=== PATIENT | male | born 1955 | race Caucasian/White ===

== ENCOUNTER → 2016-08-31 | Outpatient (CLI) | payer OTHER ==
--- NOTE | 2016-08-31 10:32 | NM ---
EXAMINATION: Nuclear medicine myocardial perfusion study with exercise stress test. HISTORY: Chest pain. PROCEDURE: Patient exercised according to Jono protocol for 10 minutes and 15 seconds and achieved maximal hea rt rate of 143 beats per minute. Adequate exercise. Following intravenous administration of 8.4 and 30 mCi of technetium 99m sestamibi, stress and res t SPECT images including gating imaging was performed. FINDINGS: Stress and rest myocardial SPECT images demonstrates heterogeneous uptake within the left ventricula r myocardium. There is decreased perfusion along the inferior wall, slightly more notable on the str ess images. There is also a small area of mildly to moderately decreased perfusion at the apex on th e stress imaging. There is also a small area of mildly to moderately decreased perfusion involving t he septal wall towards the base. Review of gated images demonstrates normal wall motion, contractility and wall thickening. The left ventricular ejection fraction is 73 %. The left ventricular chamber size is normal. IMPRESSION: 1. Heterogeneous perfusion within the left ventricular myocardium with several small areas of reduce d perfusion. Small areas of ischemia are not excluded. 2. Normal ventricular chamber size and function with ejection fraction of 73 %.
--- NOTE | 2016-09-01 18:21 | PCM.PRNOTE ---
- Free Text/Narrative Note: Cardiolite exercise stress test Resting blood pressure: Pulse 71 Patient exercised per Jono protocol 10 minutes and 15 seconds and achieved a maximum heart rate of 143 beats per minute which was 91% of age-predicted maximum heart rate. Mets: 12.8 double product 25652 Resting EKG revealed normal sinus rhythm. With exertion, borderline positive ST depressions were noted anteriorly at peak exercise with resolution during recovery phase Test stopped at target heart rate No complaints of chest pain during exercise or recovery Impression : #1. Borderline positive stress test for ischemic ST depression anterior precordial leads #2. Good exercise tolerance exercise tolerance #3. Cardiolite portion of test pending
== END ==
LOC: MW.NM 06:25
PROVIDERS: ATTEND Family Medicine
DX: R07.9 Chest pain, unspecified (principal)
CPT/HCPCS: 78452; 93017; A9500

== ENCOUNTER 2017-05-25 09:54 | Day surgery (SDC) | payer OTHER ==
[~2017-05-25 09:54] MED LIST: Bupivacaine 0.25%/EPINEPHrine 1:200,000 10 ML SDV INJECT ONE; Bupivacaine 25%/EPINEPHrine/PF 30 ML ONE; Lactated Ringers 1,000 ML IV SCH; ceFAZolin 2 GM in Premix Bag 1 BAG IV ONE; traMADol 50 MG Tab PO PRN
[2017-05-25] MEDS ORDERED: Midazolam 1 MG/ML 2 ML SDV ONE (10:28)
[2017-05-25] MEDS ORDERED: fentaNYL 100 MCG/2 ML SDV ONE (10:28)
[2017-05-25] MEDS ORDERED: Lidocaine 2% 5 ML SDV ONE (10:28)
--- NOTE | 2017-05-25 10:59 | PCM.PREANE ---
Preanesthetic Assessment - Anesthesia/Transfusion/Family Hx Anesthesia History: Prior Anesthesia Without Reaction Family History of Anesthesia Reaction: No Transfusion History: No Prior Transfusion(s) Intubation History: Unknown - Review of Systems General: No Symptoms Pulmonary: No Symptoms Cardiovascular: No Symptoms Gastrointestinal: No Symptoms Neurological: No Symptoms Other: Reports: None - Physical Assessment Height: 6.99 m Weight: 2.722 kg ASA Class: 2 Mental Status: Alert & Oriented x3 Airway Class: Mallampati = 2 Dentition: Reports: Partial (lower), Bridge (fixed bridge upper ) Thyro-Mental Finger Breadths: 3 Mouth Opening Finger Breadths: 2 ROM/Head Extension: Full Lungs: Clear to Auscultation, Normal Respiratory Effort Cardiovascular: Regular Rate, Regular Rhythm - Allergies Allergies/Adverse Reactions: Allergies Allergy/AdvReac Type Severity Reaction Status Date / Time No Known Allergies Allergy Verified 05/22/14 09:58 - Blood Blood Available: No - Anesthesia Plan Pre-Op Medication Ordered: None - Acknowledgements Anesthesia Type Planned: MAC Pt an Appropriate Candidate for the Planned Anesthesia: Yes Alternatives and Risks of Anesthesia Discussed w Pt/Guardian: Yes Pt/Guardian Understands and Agrees with Anesthesia Plan: Yes PreAnesthesia Questionnaire HEENT History: Reports: Glaucoma, Impaired Vision, Macular Degeneration, Other ( See Below) Other HEENT History: wears glasses, has bottom partial, top permanent bridge, levon hearing aids Cardiovascular History: Reports: Hypertension Respiratory History: Reports: Sleep Apnea Other Respiratory History: uses CPAP Gastrointestinal History: Reports: None Psychiatric History: Reports: Anxiety, Depression Endocrine/Metabolic History: Reports: Obesity/BMI 30+ - Past Surgical History Head Surgeries/Procedures: Reports: None HEENT Surgical History: Reports: Cataract Surgery, Oral Surgery GI Surgical History: Reports: Hernia, Inguinal (left inguinal) - SUBSTANCE USE Smoking Status *Q: Never Smoker Second Hand Smoke Exposure: No Recreational Drug Use History: No - HOME MEDS Home Medications: Home Meds Sertraline [Zoloft] 150 mg PO DAILY 05/22/14 [History] Aspirin [[place] Aspirin] 81 mg PO DAILY 05/20/17 [History] Bimatoprost [LUMIGAN 0.01% Ophth Soln] 1 drop EYEBOTH ASDIRECTED 05/20/17 [ History] Dorzolamide HCl/Timolol Maleat [Dorzolamide-Timolol Eye Drops] 1 drop EYEBOTH ASDIRECTED 05/20/17 [History] Hydrochlorothiazide 25 mg PO DAILY 05/20/17 [History] Moexipril HCl [Moexipril] 15 mg PO DAILY 05/20/17 [History] - CURRENT (IN HOUSE) MEDS Current Meds: Current Medications Lactated Ringer's (Ringers, Lactated) 1,000 mls @ 125 mls/hr IV ASDIRECTED TERRY Tramadol HCl (Ultram) 50 mg PO Q4H PRN PRN Reason: Pain Discontinued Medications Bupivacaine HCl/Epinephrine Bitart (Marcaine 0.25%/Epinephrine 1:200,000) 10 ml INJECT ONETIME ONE Stop: 05/25/17 08:01 Fentanyl (Sublimaze) Confirm Administered Dose 100 mcg .ROUTE .STK-MED ONE Stop: 05/25/17 10:29 Cefazolin Sodium/Dextrose 2 gm (/ Premix) 50 mls @ 100 mls/hr IV ONETIME ONE Stop: 05/25/17 08:29 Bupivacaine HCl/Epinephrine Bitart (Sensorc Mpf 0.25%-Epi 1:[id number]) Confirm Administered Dose 30 mls @ as directed .ROUTE .STK-MED ONE Stop: 05/25/17 07:25 Lidocaine (Xylocaine-Mpf 2%) Confirm Administered Dose 5 ml .ROUTE .STK-MED ONE Stop: 05/25/17 10:29 Midazolam HCl (Versed 1 Mg/Ml) Confirm Administered Dose 2 mg .ROUTE .STK-MED ONE Stop: 05/25/17 10:29
[2017-05-25] MEDS ORDERED: Propofol 200 MG/20 ML SDV ONE ×2 (12:08)
--- NOTE | 2017-05-25 13:28 | PCM48HPAN ---
Post Anesthesia Note - EVALUATION WITHIN 48HRS OF ANESTHETIC Vital Signs in Normal Range: Yes Patient Participated in Evaluation: Yes Respiratory Function Stable: Yes Airway Patent: Yes Cardiovascular Function Stable: Yes Hydration Status Stable: Yes Pain Control Satisfactory: Yes Nausea and Vomiting Control Satisfactory: Yes Mental Status Recovered: Yes - COMMENTS/OBSERVATIONS Free Text/Narrative:: no anesthesia problems, patient skipped recovery room phase of postoperative care
--- NOTE | 2017-05-25 20:10 | PCM.OPNOTE ---
- General Post-Op/Procedure Note Date of Surgery/Procedure: 05/25/17 Operative Procedure(s): bilateral upper lid blepharoplasties for excess skin Pre Op Diagnosis: bilateral upper eyelid skin excess causing visual obstruction Post-Op Diagnosis: Same Anesthesia Technique: Local, MAC Primary Surgeon: Amanda Baptiste Gold Layer: Ashwini Kim Complications: None Condition: Good
--- NOTE | 2017-06-02 21:06 | OR ---
SURGEON: AMANDA BAPTISTE MD DATE OF PROCEDURE: 05/25/2017 PREOPERATIVE DIAGNOSIS: Bilateral upper eyelid skin excess causing visual obstruction. POSTOPERATIVE DIAGNOSIS: Bilateral upper eyelid skin excess causing visual obstruction. PROCEDURE PERFORMED: Bilateral upper lid blepharoplasties for excess skin weighing down lids. PRIMARY SURGEON: Amanda Baptiste MD. GEOGRAPHICAL HISTORIAN: JANI Abarca. ANESTHESIA: Local MAC. REASON GEOGRAPHICAL HISTORIAN WAS NECESSARY: For retraction, prepping, draping, and closure. INDICATIONS: Mr. Bass is a 61-year-old gentleman with significant visual obstruction from his excess upper eyelid skin. Risks and benefits of removal of this were discussed with him, and he was in agreement to proceed. Risks were including, but not limited to bleeding, infection, damage to underlying or overlying structures, possible need for future intervention, and possible scarring. He was in agreement to proceed. PROCEDURE IN DETAIL: After informed consent was obtained and placed on the chart, the patient was brought to the operating theater and laid in supine position. After adequate local MAC anesthesia was obtained, the area was prepped and draped and a time- out was completed to confirm side and site. Attention was then paid to preoperative markings without infiltration of local anesthesia. Using a pinch test, appropriate elliptical excisions were made and planned over the upper eyelids. Once adequately marked, the attention was then paid to infiltration of 0.25% Marcaine with epinephrine. Once actually infiltrated, attention was then paid to dissection using a 15 blade through the skin. Bovie electrocautery was used to obtain hemostasis, and the orbicularis muscle was left in place. Once adequately removed, attention was paid to meticulous hemostasis and contraction of the muscle and then closure of the skin using single deep 5-0 Monocryl stitch and a running 6-0 Prolene for the skin. These were steri-stripped in place at the medial and lateral edges. The upper eyelids were dressed with TobraDex solution. Once this was completed, the patient was transferred to the PACU in stable condition. FOLLOWUP INSTRUCTIONS: The patient tolerated this well. All counts and needles were correct at the end of the case. The patient will follow up in 1 week or sooner if any problems, questions, or concerns. He was given a prescription for pain control. HEGGTMORGAN / MODL /[id number]
== END 2017-05-25 13:10 | disposition home or self-care (01) ==
LOC: MW.SDS 09:54
PROVIDERS: ATTEND Plastic Surgery
DX: H02.834 Dermatochalasis of left upper eyelid (principal); H02.831 Dermatochalasis of right upper eyelid; F41.9 Anxiety disorder, unspecified; F32.9 Major depressive disorder, single episode, unspecified; M65.30 Trigger finger, unspecified finger; H40.9 Unspecified glaucoma; H35.30 Unspecified macular degeneration; I10 Essential (primary) hypertension; G47.30 Sleep apnea, unspecified; E66.9 Obesity, unspecified; Z79.899 Other long term (current) drug therapy; Z68.37 Body mass index [BMI] 37.0-37.9, adult; Z79.82 Long term (current) use of aspirin
CPT/HCPCS: 15823; J0690; J2250; J3010; J7120; 00103; J2704

== ENCOUNTER 2017-09-07 07:06 | Day surgery (SDC) | payer OTHER ==
[~2017-09-07 07:06] MED LIST changes: -Bupivacaine 0.25%/EPINEPHrine 1:200,000 10 ML SDV INJECT ONE; -Bupivacaine 25%/EPINEPHrine/PF 30 ML ONE; -ceFAZolin 2 GM in Premix Bag 1 BAG IV ONE; -traMADol 50 MG Tab PO PRN
[2017-09-07] MEDS ORDERED: Lidocaine 1% 20 ML MDV ONE (07:42)
--- NOTE | 2017-09-07 07:44 | PCM.PREANE ---
Preanesthetic Assessment - Anesthesia/Transfusion/Family Hx Anesthesia History: Prior Anesthesia Without Reaction Family History of Anesthesia Reaction: No Transfusion History: No Prior Transfusion(s) Intubation History: Unknown - Review of Systems General: No Symptoms Pulmonary: No Symptoms Cardiovascular: No Symptoms Gastrointestinal: No Symptoms Neurological: No Symptoms Other: Reports: None - Physical Assessment Height: 1.83 m Weight: 127.006 kg ASA Class: 3 Mental Status: Alert & Oriented x3 Airway Class: Mallampati = 2 Dentition: Reports: Partial (lower), [place](s) (multiple upper front) Thyro-Mental Finger Breadths: 3 Mouth Opening Finger Breadths: 3 ROM/Head Extension: Full Lungs: Clear to Auscultation, Normal Respiratory Effort Cardiovascular: Regular Rate, Regular Rhythm - Allergies Allergies/Adverse Reactions: Allergies Allergy/AdvReac Type Severity Reaction Status Date / Time No Known Allergies Allergy Verified 09/02/17 11:03 - Blood Blood Available: No - Anesthesia Plan Pre-Op Medication Ordered: None - Acknowledgements Anesthesia Type Planned: General Anesthesia Pt an Appropriate Candidate for the Planned Anesthesia: Yes Alternatives and Risks of Anesthesia Discussed w Pt/Guardian: Yes Pt/Guardian Understands and Agrees with Anesthesia Plan: Yes PreAnesthesia Questionnaire HEENT History: Reports: Glaucoma, Hard of Hearing, Other (See Below) Other HEENT History: wears glasses, has partial removable lower partial denture , has bilateral hearing aides Cardiovascular History: Reports: Hypertension Respiratory History: Reports: Sleep Apnea Other Respiratory History: uses CPAP Gastrointestinal History: Reports: None Psychiatric History: Reports: Depression Endocrine/Metabolic History: Reports: Obesity/BMI 30+ - Past Surgical History HEENT Surgical History: Reports: Cataract Surgery, Other (See Below) Other HEENT Surgeries/Procedures: recent lens exchange in eyes, hx of bone removed from lower jaw GI Surgical History: Reports: Hernia, Inguinal Male Surgical History: Reports: Vasectomy Dermatological Surgical History: Reports: Other (See Below) (bilateral upper blepharoplasty) - SUBSTANCE USE Smoking Status *Q: Never Smoker Second Hand Smoke Exposure: No Recreational Drug Use History: No - HOME MEDS Home Medications: Home Meds Sertraline [Zoloft] 150 mg PO DAILY 05/22/14 [History] Bimatoprost [LUMIGAN 0.01% Ophth Soln] 1 drop EYEBOTH BEDTIME 05/20/17 [History] Dorzolamide HCl/Timolol Maleat [Dorzolamide-Timolol Eye Drops] 1 drop EYEBOTH ASDIRECTED 05/20/17 [History] Hydrochlorothiazide 25 mg PO DAILY 05/20/17 [History] Moexipril HCl [Moexipril] 15 mg PO DAILY 05/20/17 [History] - CURRENT (IN HOUSE) MEDS Current Meds: Current Medications Hydrocodone Bitart/Acetaminophen ([place] 325-5 Mg) 1 - 2 tab PO Q4H PRN PRN Reason: Pain Cefazolin Sodium/Dextrose 2 gm (/ Premix) 50 mls @ 100 mls/hr IV ONCALL TERRY Lactated Ringer's (Ringers, Lactated) 1,000 mls @ 100 mls/hr IV ASDIRECTED [facility] Last Admin: 09/07/17 07:31 Dose: 100 mls/hr
[2017-09-07] MEDS ORDERED: Acetaminophen/HYDROcodone 325-5 MG Tab PO PRN (08:00)
[2017-09-07] MEDS ORDERED: ceFAZolin 2 GM in Premix Bag 1 BAG IV SCH (08:00)
[2017-09-07] MEDS ORDERED: Propofol 200 MG/20 ML SDV ONE (08:54)
[2017-09-07] MEDS ORDERED: ceFAZolin/Dextrose,Iso-Osmotic 2 GM/50 ML Duplex Bag IV ONE (08:55)
[2017-09-07] MEDS ORDERED: fentaNYL 250 MCG/5 ML SDV ONE (08:55)
[2017-09-07] MEDS ORDERED: Midazolam 1 MG/ML 2 ML SDV ONE (08:55)
--- NOTE | 2017-09-07 09:02 | PCM.OPNOTE ---
- General Post-Op/Procedure Note Date of Surgery/Procedure: 09/07/17 Operative Procedure(s): R knee scope with PMM Post-Op Diagnosis: R knee medial meniscus tear Anesthesia Technique: General LMA Primary Surgeon: Katerina Bentley Defect Repairer Glassware: Britany Oliver in mLs: 5 Condition: Good Free Text/Narrative:: tt=15 min #[id number]
--- NOTE | 2017-09-07 10:36 | PCM.POSTAN ---
POST ANESTHESIA ASSESSMENT - MENTAL STATUS Mental Status: Alert, Oriented - VITAL SIGNS Pulse Rate: 69 SaO2: 98 Resp Rate: 20 Blood Pressure: 137/82 - RESPIRATORY Respiratory Status: Respiratory Rate WNL, Airway Patent, O2 Saturation Stable - CARDIOVASCULAR CV Status: Pulse Rate WNL, Blood Pressure Stable - GASTROINTESTINAL GI Status: No Symptoms - PAIN Pain Score: 0 - POST OP HYDRATION Hydration Status: Adequate & Stable
--- NOTE | 2017-09-07 11:21 | OR ---
SURGEON: Katerina Bentley MD DATE OF PROCEDURE: 09/07/2017 PREOPERATIVE DIAGNOSES: 1. Right knee medial meniscus tear. 2. Right knee degenerative joint disease. POSTOPERATIVE DIAGNOSES: 1. Right knee medial meniscus tear. 2. Right knee degenerative joint disease. PROCEDURE: Right knee arthroscopy with partial medial meniscectomy. CHASER APPRENTICE: Britany Oliver PA-C ANESTHESIA: General. ESTIMATED BLOOD LOSS: 5 mL. TOURNIQUET TIME: See nursing record. COMPLICATIONS: None. DEEP VENOUS THROMBOSIS PROPHYLAXIS: Not indicated. IMPLANTS USED: None. BRIEF HISTORY: Mason is a 62-year-old male who injured his right knee while at work. An MRI did show a tear of the medial meniscus along with minor degenerative changes. Due to his lack of response to conservative treatment, I did recommend surgical intervention. The risks and goals of procedure were discussed with the patient and were documented preoperatively. He agreed to proceed. DESCRIPTION OF PROCEDURE: The patient was properly identified and brought to the operating room. He was transferred from the OR cart and placed on the operating table in supine position. General anesthesia was administered. After adequate anesthesia was obtained, a well-padded tourniquet was applied to the right lower extremity. The right lower extremity was then prepped in standard fashion using ChloraPrep solution. It was then sterilely draped. A time-out was performed to ensure correct site and procedure. Preoperative antibiotics were given. The surgical site had been marked preoperatively. An Esmarch was used to exsanguinate the right lower extremity and the tourniquet was inflated to 250 mmHg. A lateral portal arthrotomy was established. Blunt trocar and cannula were introduced into the suprapatellar pouch. Camera, inflow, and outflow were assembled. No significant synovitis was noted. The patellofemoral joint was visualized. 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 Grade 2 chondromalacia was noted along the undersurface of the patella. The patella appeared to track centrally. I then extended down the lateral and medial gutter. No loose bodies were identified. I then entered the medial compartment. A medial portal arthrotomy was established. A blunt probe was inserted. Degenerative radial tear along the posterior horn of the medial meniscus was noted. Using a combination of biters and shaver, this was resected back to a stable remnant. The meniscus was again probed and the remainder was found to be stable. The joint surfaces did show grade 3 chondromalacia along the weightbearing portion of the medial femoral condyle. Grade 2 chondromalacia was noted along the medial femoral condyle. I then entered the notch. Both the ACL and PCL were visualized and probed and found to be intact. Finally I entered the lateral compartment. Diffuse grade 2 chondromalacia was noted throughout the lateral compartment. The meniscus was probed. Minor degenerative fraying was noted centrally. The meniscus was probed and found to be stable. The instruments were then removed from the knee. The portal sites were closed with 3-0 nylon. Lidocaine 1% was injected along the portal tracts. Xeroform gauze was placed over the wound and a bulky dressing was applied. The tourniquet was then deflated. He was awakened from his anesthetic and transferred back to the operating room cart. He was brought to recovery room in stable condition. All needle and sponge counts were correct. JARRETT / PADMINI /[id number]
--- NOTE | 2017-09-07 11:51 | PCM48HPAN ---
Post Anesthesia Note - EVALUATION WITHIN 48HRS OF ANESTHETIC Vital Signs in Normal Range: Yes Patient Participated in Evaluation: Yes Respiratory Function Stable: Yes Airway Patent: Yes Cardiovascular Function Stable: Yes Hydration Status Stable: Yes Pain Control Satisfactory: Yes Nausea and Vomiting Control Satisfactory: Yes Mental Status Recovered: Yes Pulse Rate: 69 Resp Rate: 16 Blood Pressure: 137/82 - COMMENTS/OBSERVATIONS Free Text/Narrative:: no anesthesia problems
== END 2017-09-07 11:15 | disposition home or self-care (01) ==
LOC: MW.SDS 07:06
PROVIDERS: ATTEND Orthopaedic Surgery
DX: S83.241A Other tear of medial meniscus, current injury, right knee, initial encounter (principal); M17.11 Unilateral primary osteoarthritis, right knee; M22.41 Chondromalacia patellae, right knee; F41.9 Anxiety disorder, unspecified; F32.9 Major depressive disorder, single episode, unspecified; I10 Essential (primary) hypertension; G47.30 Sleep apnea, unspecified; M65.30 Trigger finger, unspecified finger; E66.9 Obesity, unspecified; Z68.30 Body mass index [BMI] 30.0-30.9, adult; X58.XXXA Exposure to other specified factors, initial encounter; Z79.899 Other long term (current) drug therapy; Z99.89 Dependence on other enabling machines and devices
CPT/HCPCS: 29881; 88304; J0690; J2250; J3010; J7120; 01400; J2704

== ENCOUNTER 2017-12-23 06:39 | Day surgery (SDC) | payer OTHER ==
[2017-12-23] MEDS ORDERED: Midazolam 1 MG/ML 2 ML SDV ONE (07:17)
[2017-12-23] MEDS ORDERED: fentaNYL 100 MCG/2 ML SDV ONE (07:17)
[2017-12-23] MEDS ORDERED: Propofol 200 MG/20 ML SDV ONE (07:17)
[2017-12-23] MEDS ORDERED: ceFAZolin/Dextrose,Iso-Osmotic 2 GM/50 ML Duplex Bag IV ONE (07:26)
[2017-12-23] MEDS ORDERED: Bupivacaine 25%/EPINEPHrine/PF 30 ML ONE (07:39)
--- NOTE | 2017-12-23 07:39 | PCM.PREANE ---
Preanesthetic Assessment - Procedure Proposed Procedure: Left ring finger trigger release - Anesthesia/Transfusion/Family Hx Anesthesia History: Prior Anesthesia Without Reaction Family History of Anesthesia Reaction: No Transfusion History: No Prior Transfusion(s) Intubation History: Unknown - Review of Systems Other: Reports: None - Physical Assessment NPO Status Date: 12/22/17 NPO Status Time: 20:00 O2 Sat by Pulse Oximetry: 94 Respiratory Rate: 16 Vital Signs: Last Vital Signs Temp 36.4 C 12/23/17 06:55 Pulse 68 12/23/17 06:55 Resp 16 12/23/17 06:55 BP 144/90 H 12/23/17 06:55 Pulse Ox 94 L 12/23/17 06:55 Height: 6 ft Weight: 127.006 kg ASA Class: 2 Airway Class: Mallampati = 1 Dentition: Reports: Normal Dentition Thyro-Mental Finger Breadths: 3 Mouth Opening Finger Breadths: 3 ROM/Head Extension: Full - Allergies Allergies/Adverse Reactions: Allergies Allergy/AdvReac Type Severity Reaction Status Date / Time No Known Allergies Allergy Verified 12/19/17 14:49 - Acknowledgements Anesthesia Type Planned: MAC Pt an Appropriate Candidate for the Planned Anesthesia: Yes Alternatives and Risks of Anesthesia Discussed w Pt/Guardian: Yes Pt/Guardian Understands and Agrees with Anesthesia Plan: Yes PreAnesthesia Questionnaire HEENT History: Reports: Glaucoma, Hard of Hearing, Other (See Below) Other HEENT History: wears glasses, has partial removable lower partial denture , has bilateral hearing aides Cardiovascular History: Reports: Hypertension Respiratory History: Reports: Sleep Apnea Other Respiratory History: uses CPAP Gastrointestinal History: Reports: None Psychiatric History: Reports: Anxiety, Depression Endocrine/Metabolic History: Reports: Obesity/BMI 30+ Dermatologic History: Reports: None - Past Surgical History Head Surgeries/Procedures: Reports: None HEENT Surgical History: Reports: Cataract Surgery, Other (See Below) Other HEENT Surgeries/Procedures: recent lens exchange in eyes, hx of bone removed from lower jaw GI Surgical History: Reports: Hernia, Inguinal Male Surgical History: Reports: Vasectomy Musculoskeletal Surgical History: Reports: Arthroscopic Knee - SUBSTANCE USE Smoking Status *Q: Never Smoker Recreational Drug Use History: No - HOME MEDS Home Medications: Home Meds Sertraline [Zoloft] 150 mg PO DAILY 05/22/14 [History] Bimatoprost [LUMIGAN 0.01% Ophth Soln] 1 drop EYEBOTH BEDTIME 05/20/17 [History] Dorzolamide HCl/Timolol Maleat [Dorzolamide-Timolol Eye Drops] 1 drop EYEBOTH ASDIRECTED 05/20/17 [History] Hydrochlorothiazide 25 mg PO DAILY 05/20/17 [History] Moexipril HCl [Moexipril] 15 mg PO DAILY 05/20/17 [History] - CURRENT (IN HOUSE) MEDS Current Meds: Current Medications Hydrocodone Bitart/Acetaminophen ([place] 325-5 Mg) 1 tab PO Q4H PRN PRN Reason: Pain Bupivacaine HCl/Epinephrine Bitart (Marcaine 0.25%/Epinephrine 1:200,000) 10 ml INJECT ONETIME ONE Stop: 12/23/17 08:01 Cefazolin Sodium/Dextrose 2 gm (/ Premix) 50 mls @ 100 mls/hr IV ONETIME ONE Stop: 12/23/17 08:29 Lactated Ringer's (Ringers, Lactated) 1,000 mls @ 125 mls/hr IV ASDIRECTED TERRY Last Admin: 12/23/17 07:03 Dose: 125 mls/hr Discontinued Medications Cefazolin Sodium/Dextrose (Ancef) Confirm Administered Dose 2 gm IV .STK-MED ONE Stop: 12/23/17 07:27 Fentanyl (Sublimaze) Confirm Administered Dose 100 mcg .ROUTE .STK-MED ONE Stop: 12/23/17 07:18 Midazolam HCl (Versed 1 Mg/Ml) Confirm Administered Dose 2 mg .ROUTE .STK-MED ONE Stop: 12/23/17 07:18 Propofol (Diprivan 20 Ml) Confirm Administered Dose 200 mg .ROUTE .STK-MED ONE Stop: 12/23/17 07:18
[2017-12-23] MEDS ORDERED: Acetaminophen/HYDROcodone 325-5 MG Tab PO PRN (08:00)
[2017-12-23] MEDS ORDERED: ceFAZolin 2 GM in Premix Bag 1 BAG IV ONE (08:00)
[2017-12-23] MEDS ORDERED: Lactated Ringers 1,000 ML IV SCH (08:00)
[2017-12-23] MEDS ORDERED: Bupivacaine 0.25%/EPINEPHrine 1:200,000 10 ML SDV INJECT ONE (08:00)
--- NOTE | 2017-12-23 08:59 | PCM.POSTAN ---
POST ANESTHESIA ASSESSMENT - MENTAL STATUS Mental Status: Alert, Oriented - RESPIRATORY Respiratory Status: Respiratory Rate WNL, Airway Patent, O2 Saturation Stable - CARDIOVASCULAR CV Status: Pulse Rate WNL, Blood Pressure Stable - GASTROINTESTINAL GI Status: No Symptoms - PAIN Pain Score: 0 - POST OP HYDRATION Hydration Status: Adequate & Stable
--- NOTE | 2017-12-23 09:12 | PCM48HPAN ---
Post Anesthesia Note - EVALUATION WITHIN 48HRS OF ANESTHETIC Vital Signs in Normal Range: Yes Patient Participated in Evaluation: Yes Respiratory Function Stable: Yes Airway Patent: Yes Cardiovascular Function Stable: Yes Hydration Status Stable: Yes Pain Control Satisfactory: Yes Nausea and Vomiting Control Satisfactory: Yes Mental Status Recovered: Yes Resp Rate: 16
--- NOTE | 2017-12-23 13:41 | PCM.OPNOTE ---
- General Post-Op/Procedure Note Date of Surgery/Procedure: 12/23/17 Operative Procedure(s): left ring finger trigger finger release Pre Op Diagnosis: left ring finger trigger finger Post-Op Diagnosis: Same Anesthesia Technique: Local, MAC Primary Surgeon: Amanda Baptiste Complications: None Condition: Good
--- NOTE | 2017-12-26 15:00 | OR ---
SURGEON: BRUNILDA GIRARD MD DATE OF PROCEDURE: 12/23/2017 PREOPERATIVE DIAGNOSIS: Left ring finger trigger finger. POSTOPERATIVE DIAGNOSIS: Left ring finger trigger finger. PROCEDURE: Left ring finger trigger finger release. BULK PLANT OPERATOR: None. ANESTHESIA: Local MAC. INDICATIONS: Mr. Bass is a 62-year-old gentleman with significant ring finger triggering on the left side. Risks and benefits of release were discussed with him and he would like to proceed. He has previously failed injections. Risks were including, but not limited to bleeding, infection, damage to underlying or overlying structures, possible need for future interventions, and possible scarring. PROCEDURE IN DETAIL: After informed consent was obtained and placed on the chart, the patient was brought to the operating theater and laid in supine position. After adequate anesthesia was obtained, the area was prepped and draped. The arm was exsanguinated and tourniquet was insufflated to 200 mmHg. Attention was then paid to the left ring finger trigger finger incision over the A1 yanelis and this was made through the skin. Dissection was carried through subcutaneous tissues using a Ray-Yanci for spreading. Retraction was taken to protect the digital neurovascular bundles and the A1 yanelis was easily located. A 15 blade was used to cut through the sheath until breach and then dissection was carried distally and proximally using a Littler scissor for complete release. Once adequately released, the wound was irrigated and closed in a horizontal mattress fashion and dressed with Xeroform, fluffs, Kerlix, gauze dressing, and a 2-inch Jn wrap. The patient tolerated the procedure well. All counts needles were correct at the end of the case. FOLLOWUP INSTRUCTIONS: The patient will see us in 2 weeks for suture removal, sooner with any problems, questions, or concerns. ABDOULAYE / PADMINI /[id number]
== END 2017-12-23 09:25 | disposition home or self-care (01) ==
LOC: MW.SDS 06:39
PROVIDERS: ATTEND Plastic Surgery
DX: M65.342 Trigger finger, left ring finger (principal); I10 Essential (primary) hypertension; E66.9 Obesity, unspecified; Z68.37 Body mass index [BMI] 37.0-37.9, adult; F41.9 Anxiety disorder, unspecified; F32.9 Major depressive disorder, single episode, unspecified; G47.30 Sleep apnea, unspecified; Z99.89 Dependence on other enabling machines and devices; Z79.899 Other long term (current) drug therapy
CPT/HCPCS: 26055; J0690; J2250; J3010; J7120; J2704

== ENCOUNTER 2018-06-26 17:55 | Emergency (ER) | payer OTHER ==
--- NOTE | 2018-06-26 18:25 | EDM.PDOC ---
ED HPI GENERAL MEDICAL PROBLEM - General Chief Complaint: Cardiovascular Problem Stated Complaint: HIGH BP Time Seen by Provider: 06/26/18 18:22 Source of Information: Reports: Patient History Limitations: Reports: No Limitations - History of Present Illness INITIAL COMMENTS - FREE TEXT/NARRATIVE: HISTORY AND PHYSICAL: History of present illness: Patient is a 62-year-old male here with complaint of high blood pressure. He states he took his BP medication this morning and when he took his BP this afternoon using a cuff at home and it was 187/110. He took 1/2 of his BP medication and came to the ED. He denies chest pain/pressure, SOB, headache, dizziness, lightheadedness, visual changes, abdominal pain. States he feels a little tired but is otherwise in his usual states of health and has no other complaints. Blood pressure is 149/93. Review of systems: As per history of present illness and below otherwise all systems reviewed and negative. Past medical history: As per history of present illness and as reviewed below otherwise noncontributory. Surgical history: As per history of present illness and as reviewed below otherwise noncontributory. Social history: No reported history of drug or alcohol abuse. Family history: As per history of present illness and as reviewed below otherwise noncontributory. Physical exam: General: Patient sitting comfortably in no acute distress and nontoxic appearing HEENT: Atraumatic, normocephalic, pupils reactive, negative for conjunctival pallor or scleral icterus, mucous membranes moist, throat clear, neck supple, nontender, trachea midline. No meningeal signs. Lungs: Clear to auscultation, breath sounds equal bilaterally, chest nontender. Heart: S1S2, regular, negative for clicks, rubs, or overt murmur. Abdomen: Soft, nondistended, nontender. Negative for masses or hepatosplenomegaly. Negative for costovertebral tenderness. Pelvis: Stable nontender. Genitourinary: Deferred. Rectal: Deferred. Extremities: Atraumatic, negative for cords or calf pain. Neurovascular unremarkable. Neuro: Awake, alert, oriented. Cranial nerves II through XII unremarkable. Cerebellum unremarkable. Motor and sensory unremarkable throughout. Exam nonfocal. Notes: Diagnostics: EKG Therapeutics: None Prescriptions: None Impression: Hypertension, asymptomatic Plan: 1. Follow up with primary care provider 2. Return to ED as needed as discussed Definitive disposition and diagnosis as appropriate pending reevaluation and review of above. - Related Data Allergies Allergy/AdvReac Type Severity Reaction Status Date / Time No Known Allergies Allergy Verified 06/26/18 18:01 Home Meds: Home Meds Bimatoprost [LUMIGAN 0.01% Ophth Soln] 1 drop EYEBOTH BEDTIME 05/20/17 [History] Dorzolamide HCl/Timolol Maleat [Dorzolamide-Timolol Eye Drops] 1 drop EYEBOTH ASDIRECTED 05/20/17 [History] Hydrochlorothiazide 25 mg PO DAILY 05/20/17 [History] Moexipril HCl [Moexipril] 15 mg PO DAILY 05/20/17 [History] Hydrocodone/Acetaminophen [Hydrocodon-Acetaminophen 5-325] 1 each PO Q4HR PRN # 20 tablet 12/23/17 [Rx] Triamterene/Hydrochlorothiazid [Triamterene-HCTZ 37.5-25 MG] 1 tab PO DAILY [History] Past Medical History HEENT History: Reports: Glaucoma, Hard of Hearing, Other (See Below) Other HEENT History: wears glasses, has partial removable lower partial denture , has bilateral hearing aides Cardiovascular History: Reports: Hypertension Respiratory History: Reports: Sleep Apnea Other Respiratory History: uses CPAP Gastrointestinal History: Reports: None Genitourinary History: Reports: None Musculoskeletal History: Reports: None Neurological History: Reports: None Psychiatric History: Reports: Anxiety, Depression Endocrine/Metabolic History: Reports: Obesity/BMI 30+ Hematologic History: Reports: None Immunologic History: Reports: None Oncologic (Cancer) History: Reports: None Dermatologic History: Reports: None - Infectious Disease History Infectious Disease History: Reports: Chicken Pox, Measles - Past Surgical History Head Surgeries/Procedures: Reports: None HEENT Surgical History: Reports: Cataract Surgery, Other (See Below) Other HEENT Surgeries/Procedures: recent lens exchange in eyes, hx of bone removed from lower jaw Cardiovascular Surgical History: Reports: None Respiratory Surgical History: Reports: None GI Surgical History: Reports: Hernia, Inguinal Male Surgical History: Reports: Vasectomy Endocrine Surgical History: Reports: None Neurological Surgical History: Reports: None Musculoskeletal Surgical History: Reports: Arthroscopic Knee Oncologic Surgical History: Reports: None Dermatological Surgical History: Reports: None Social & Family History - Family History Family Medical History: Noncontributory - Tobacco Use Smoking Status *Q: Never Smoker Second Hand Smoke Exposure: No - Caffeine Use Caffeine Use: Reports: Coffee, Soda - Recreational Drug Use Recreational Drug Use: No ED ROS GENERAL - Review of Systems Review Of Systems: ROS reveals no pertinent complaints other than HPI. ED EXAM, GENERAL - Physical Exam Exam: See Below (see dictation) Course - Vital Signs Last Recorded V/S: Last Vital Signs Temp 97.2 F 06/26/18 18:02 Pulse 88 06/26/18 18:02 Resp 18 06/26/18 18:02 BP 149/93 H 06/26/18 18:27 Pulse Ox 92 L 06/26/18 18:02 - Orders/Labs/Meds Orders: Active Orders 24 hr Category Date Time Status EKG Documentation Completion [RC] STAT Care 06/26/18 18:24 Active Departure - Departure Time of Disposition: 18:40 Disposition: Home, Self-Care 01 Condition: Good Clinical Impression: Hypertension Referrals: Shola Simon MD [Primary Care Provider] - Forms: ED Department Discharge Additional Instructions: The following information is given to patients seen in the emergency department who are being discharged to home. This information is to outline your options for follow-up care. We provide all patients seen in our emergency department with a follow-up referral. The need for follow-up, as well as the timing and circumstances, are variable depending upon the specifics of your emergency department visit. If you don't have a primary care physician on staff, we will provide you with a referral. We always advise you to contact your personal physician following an emergency department visit to inform them of the circumstance of the visit and for follow-up with them and/or the need for any referrals to a consulting specialist. The emergency department will also refer you to a specialist when appropriate. This referral assures that you have the opportunity for follow-up care with a specialist. All of these measure are taken in an effort to provide you with optimal care, which includes your follow-up. Under all circumstances we always encourage you to contact your private physician who remains a resource for coordinating your care. When calling for follow-up care, please make the office aware that this follow-up is from your recent emergency room visit. If for any reason you are refused follow-up, please contact the [facility] Emergency Department at and asked to speak to the emergency department charge nurse. [address] [address] 1. Follow up with primary care provider 2. Return to ED as needed as discussed - My Orders Last 24 Hours: My Active Orders 06/26/18 18:24 EKG Documentation Completion [RC] STAT - Assessment/Plan Last 24 Hours: My Active Orders 06/26/18 18:24 EKG Documentation Completion [RC] STAT
== END 2018-06-26 18:56 | disposition home or self-care (01) ==
LOC: MW.ED 17:55
DX: I10 Essential (primary) hypertension (principal); F41.9 Anxiety disorder, unspecified; F32.9 Major depressive disorder, single episode, unspecified; Z79.899 Other long term (current) drug therapy
CPT/HCPCS: 93005; 99283; 99283-25

== ENCOUNTER 2023-09-15 09:14 | Day surgery (SDC) | payer MEDICARE, BC ==
[~2023-09-15 09:14] MED LIST changes: -Lactated Ringers 1,000 ML IV SCH; +Sodium Chloride 0.9% 10 ML Syringe FLUSH PRN; +Sodium Chloride 0.9% 2.5 ML Syringe FLUSH PRN; +Sodium Chloride 0.9% 20 ML SDV IV PRN
[2023-09-15] MEDS: Lactated Ringers 1,000 ML IV SCH (09:38)
[2023-09-15] MEDS ORDERED: propofoL 50 ML ONE (11:17)
== END 2023-09-15 12:14 | disposition home or self-care (01) ==
LOC: MW.SDS 09:14
PROVIDERS: ATTEND Surgery
DX: Z12.11 Encounter for screening for malignant neoplasm of colon (principal); D12.4 Benign neoplasm of descending colon; K62.1 Rectal polyp; K64.3 Fourth degree hemorrhoids; I10 Essential (primary) hypertension; E11.9 Type 2 diabetes mellitus without complications; F32.A Depression, unspecified; G47.33 Obstructive sleep apnea (adult) (pediatric); Z98.890 Other specified postprocedural states; Z79.82 Long term (current) use of aspirin; Z79.84 Long term (current) use of oral hypoglycemic drugs; Z79.899 Other long term (current) drug therapy
CPT/HCPCS: 45380; 82947; J2704; J7120

== ENCOUNTER 2024-01-09 16:30 | Observation (INO) | payer MEDICARE, BC ==
[2024-01-09] MEDS: Sodium Chloride 0.9% 1,000 ML IV ONE (19:36)
[2024-01-09] MEDS: Ondansetron 4 MG/2 ML SDV IVPUSH ONE (19:37)
[2024-01-09] MEDS: Morphine 4 MG/ML Syringe IVPUSH ONE (21:13)
[2024-01-09] MEDS ORDERED: 50% Dextrose in Water 50 ML Syringe IVPUSH PRN (23:44)
[2024-01-09] MEDS ORDERED: Glucagon,Human Recombinant 1 MG Vial IM PRN (23:44)
[2024-01-10] MEDS: Insulin Aspart 100 Units/ML 3 ML Pen SUBCUT SCH (06:55)
[2024-01-10 08:55] LABS: BASOPHILS ABSOLUTE AUTO 0.02 K/uL (0.00-0.20); BASOPHILS PERCENT AUTO 0.3 % (0.0-1.0); EOSINOPHILS ABSOLUTE AUTO 0.09 K/uL (0.00-0.45); EOSINOPHILS PERCENT AUTO 1.2 % (0.0-6.0); HEMATOCRIT 45.2 % (42.0-52.0); HEMOGLOBIN 15.4 g/dL (14.0-18.0); IMMATURE GRAN ABSOLUTE AUTO 0.03 K/uL (0.00-0.05); IMMATURE GRAN PERCENT AUTO 0.4 % (0.0-0.4); LYMPHOCYTES ABSOLUTE AUTO 1.42 K/uL (1.00-4.80); LYMPHOCYTES PERCENT AUTO 19.6 % (24.0-44.0); MEAN CORPUSCULAR HGB CONC 34.1 g/dL (32.0-36.0); MEAN CORPUSCULAR VOLUME 85.1 fL (83.0-99.0); MEAN PLATELET VOLUME 9.5 fL (9.4-12.4); MONOCYTES ABSOLUTE AUTO 0.59 K/uL (0.00-0.80); MONOCYTES PERCENT AUTO 8.2 % (0.0-8.0); NEUTROPHILS ABSOLUTE AUTO 5.08 K/uL (1.80-7.70); NEUTROPHILS PERCENT AUTO 70.3 % (41.0-71.0); PLATELET COUNT,PLT 173 K/uL (150-400); RED BLOOD CELL COUNT 5.31 M/uL (4.52-5.90); WHITE BLOOD CELL COUNT,WBC 7.23 K/uL (3.9-11.3)
[2024-01-10 09:28] LABS: CREATININE 1.1 mg/dL (0.8-1.3); EST CRCL DRUG DOSING (CG) 69.57 mL/min; MAGNESIUM 2.2 mg/dL (1.8-2.4); TSH ULTRASENSITIVE 1.83 uIU/mL (0.36-3.74)
[2024-01-10] MEDS ORDERED: Beta-Carotene (Vitamin A) w/Vitamin C & E plus Minerals Tab PO SCH (10:15)
[2024-01-10] MEDS: ARIPiprazole 10 MG Tab PO SCH (11:14)
[2024-01-10] MEDS: Hydrochlorothiazide/Triamterene 25-37.5 Tab PO SCH (11:14)
[2024-01-10] MEDS: Losartan 50 MG Tab PO SCH (11:15)
[2024-01-10] MEDS: Aspirin 81 MG Tab.EC PO SCH (11:15)
[2024-01-10] MEDS: Empagliflozin 25 MG Tab PO SCH (11:16)
[2024-01-10] MEDS: Rosuvastatin 10 MG Tab PO SCH (11:20)
[2024-01-10] MEDS: Gadobenate Dimeglumine 529 MG/ML 20 ML SDV IVPUSH ONE (12:14)
[2024-01-10] MEDS ORDERED: metFORMIN 500 MG Tab.ER PO SCH (17:00)
[2024-01-10] MEDS ORDERED: DESVENLAFAXINE SUCCINATE PO SCH (21:00)
[2024-01-10] MEDS ORDERED: BIMATOPROST EYEBOTH SCH (21:00)
[2024-01-10] MEDS ORDERED: Latanoprost 0.005% Ophth Soln 2.5 ML Bottle EYEBOTH SCH (21:00)
[2024-01-10] MEDS ORDERED: Desvenlafaxine Succinate 25 MG TAB.ER PO SCH (21:00)
[2024-01-11] MEDS ORDERED: DORZOLAMIDE HCL EYEBOTH SCH (21:00)
[2024-01-11] MEDS ORDERED: TIMOLOL MALEAT EYEBOTH SCH (21:00)
== END 2024-01-10 14:50 | disposition home or self-care (01) ==
LOC: MW.ED 16:30 → MW.MS 21:04
PROVIDERS: ADMIT Internal Medicine; ATTEND Internal Medicine
DX: R51.9 Headache, unspecified (principal); D49.6 Neoplasm of unspecified behavior of brain; E11.9 Type 2 diabetes mellitus without complications; I10 Essential (primary) hypertension; H40.9 Unspecified glaucoma; F32.A Depression, unspecified; E78.00 Pure hypercholesterolemia, unspecified; F41.9 Anxiety disorder, unspecified; Z79.82 Long term (current) use of aspirin; Z79.84 Long term (current) use of oral hypoglycemic drugs; Z79.899 Other long term (current) drug therapy
CPT/HCPCS: 36415; 70450; 70553; 80048; 82947; 83735; 84443; 85025; 96374; 96375; 99285; A9270; A9577; J2270; J2405; J7030; 99222; G0378